=== PATIENT | female | born 1975 | race Caucasian/White ===

== ENCOUNTER 2016-11-02 06:45 | Day surgery (SDC) | payer OTHER ==
[~2016-11-02] VITALS: Ht 165.1 cm; Wt 94.1 kg
--- NOTE | ~2016-11-02 | OR ---
PATIENT'S NAME: MICAH JAMES [facility] AGE: 40 Y [address] ROOM: [place] [address] LOCATION: GOBS ADMIT DATE: 11/02/2016 OR/Procedure Report DISCHARGE DATE: FAMILY PHYSICIAN: Mitchel Moreira MD ATTENDING PHYSICIAN: DIVYA SOUZA SURGEON: Divya Souza MD RENT CONTROL OFFICE MANAGER: Logan Jain M.D. DATE OF PROCEDURE: 11/02/2016 PROCEDURE PERFORMED: Exam under anesthesia, lysis of adhesions, robotic assisted total hysterectomy and bilateral salpingectomy. ANESTHESIA: General. PREOPERATIVE DIAGNOSES: 1. Abnormal uterine bleeding, heavy menstrual bleeding, and leiomyoma. 2. Obesity. 3. Tobacco use. POSTOPERATIVE DIAGNOSES: 1. Abnormal uterine bleeding, heavy menstrual bleeding and leiomyoma. 2. Obesity. 3. Tobacco use. ANTIBIOTICS: 2 g Ancef. ESTIMATED BLOOD LOSS: 100 mL. FINDINGS: Enlarged uterus approximately 14 weeks in size. Extensive adhesions of the omentum and bladder to the anterior abdominal wall as well as between the bladder and the uterus. Normal-appearing tubes and ovaries bilaterally. Uterus with multiple fibroids, largest was an intramural leiomyoma approximately 6 cm in size. SPECIMENS: Uterus, cervix, and bilateral fallopian tubes. COMPLICATIONS: None. DISPOSITION: The patient is stable and sent to PACU. INDICATION FOR THE PROCEDURE: The patient is a 40-year-old female who was evaluated in the office for complaints of abnormal uterine bleeding with heavy menstrual bleeding that had been worsening over the last several years. The patient had an outside ultrasound done at the [facility] approximately a year and a half prior, which showed multiple fibroids. The patient had a PATIENT'S NAME: MICAH JAMES [facility] AGE: 40 Y [address] ROOM: [place] [address] LOCATION: GOBS ADMIT DATE: 11/02/2016 OR/Procedure Report DISCHARGE DATE: FAMILY PHYSICIAN: Mitchel Moreira MD ATTENDING PHYSICIAN: DIVYA SOUZA negative endometrial biopsy in the office and had previously had a normal TSH. She had a Pap smear done which was pending at the time of surgery. The patient was counseled about options for management. Due to her tobacco use, she was not a candidate for any estrogen containing contraceptives. The patient had previously had a tubal ligation and was done with childbearing. She desired to proceed with definitive management with hysterectomy. She was aware of the possibility of risk of infection, risk of bleeding, risk of injury to bowel and bladder, risks associated with anesthesia, and risk of thromboembolism. She was aware of risks and desired to proceed. DESCRIPTION OF PROCEDURE: The patient was seen in the preoperative area where consents were reviewed and signed. All questions were answered. She was then taken back to the operating room where a time-out was performed to confirm correct patient and correct procedure. She was placed under general anesthesia without difficulty. The patient was then positioned in dorsal lithotomy position in [facility]. As she was prepared adequately for the robot and Trendelenburg testing was positioned until the patient was found to be in adequate position. She was then prepped and draped in the usual sterile fashion. A weighted speculum was placed in the vagina and a [place] was used to retract anteriorly to visualize the cervix. Single-tooth tenaculum was applied to the anterior lip of the cervix and gentle traction applied. Cervix was progressively dilated to accommodate the MILENA manipulator. A single stitch of 0 Vicryl was placed in the anterior lip of the cervix and the MILENA manipulator was placed. Balloon had previously been tested. Uterine balloon was blown up and was felt to be in a proper position. All instruments were removed from the vagina and the surgeon's gloves were changed. The attention was then turned to the patient's abdomen. An incision was made approximately 20 cm superior to the pubic symphysis. A Veress needle was introduced through the incision and intraabdominal opening pressure was noted to be 8. Abdomen was allowed to insufflate to a pressure of 15. An 8 mm trocar was then advanced through this incision. Proper placement was confirmed with the laparoscoped. Under direct visualization, three additional 8 mm ports were placed for the robot as well as a 10 mm port in the right upper quadrant for the physician's assistant port. The patient was then placed in maximum Trendelenburg positioning and the robot was docked. Instruments were advanced into the abdomen under visualization. The patient was noted to have extensive adhesions of the omentum in bladder to the anterior abdominal wall. These were taken down bluntly and sharply. The uterus was then noted to be enlarged approximately 14 weeks in size with normal-appearing tubes and ovaries bilaterally. Extensive scar tissue was present between the bladder and the uterus. Starting on the patient's left side, the left fallopian tube was grasped, tented up, and transected from the underlying ovary. The left round ligament was then cauterized and ligated. This was repeated on the patient's right side. Successive bites were then taken down the left and right side down to the level of the uterine artery. The uterus was then retroverted and PATIENT'S NAME: MICAH JAMES [facility] AGE: 40 Y [address] ROOM: [address] [address] LOCATION: BS ADMIT DATE: 11/02/2016 OR/Procedure Report DISCHARGE DATE: FAMILY PHYSICIAN: Mitchel Moreira MD ATTENDING PHYSICIAN: DIVYA SOUZA work was performed on the bladder from the uterus. Once it was felt that there was safe bladder plane established, the uterine arteries were ligated on both sides. The uterus was then again retroverted and anterior colpotomy was made. This was carried circumferentially around on top of the MILENA manipulator. Uterus was then freed and removed through the vagina with the fallopian tubes. The pedicles were inspected and appeared hemostatic. The scissor instrument was then removed and a needle security patrol driver inserted. The needle was brought into the abdomen under direct visualization. The cuff was then closed in a running nonlocked fashion using 2-0 barbed suture. Again, incision appeared hemostatic. All instruments were removed from the patient's abdomen. The patient was placed in level positioning. The robot was undocked. The patient was placed in level positioning. All the physician's assistant port's fascia was closed with a single [id number] suture of 0 Vicryl. The skin incisions were then all closed using a running nonlocked suture of 4- 0 Vicryl. All incision sites appeared hemostatic and the patient was sent to the recovery room in stable condition. MD MIKE MCKEON/marck /[id number] d: t: 11/02/16 1659, OPERATIVE SUMMARY
[~2016-11-02 06:45] MED LIST: EFFEXOR XR150 MG PO; TYLENOL/COD#31 TAB PO
[2016-11-02 07:24] LABS: BASOPHIL % 0.4 %; EOSINOPHIL # 0.2 K/uL (0.0-0.5); EOSINOPHIL % 2.4 %; HEMATOCRIT 34.4 % (33.0-46.0); IMMATURE GRANULOCYTE % 0.3 %; LYMPHOCYTE # 2.7 K/uL (0.8-4.0); LYMPHOCYTE % 35.8 %; MCH 26.8 pg (27.0-34.0); MCV 83.9 fl (83.0-98.0); MONOCYTE # 0.7 K/uL (0.0-1.0); MONOCYTE % 9.8 %; MPV 9.5 fl (9.4-12.4); NEUTROPHIL # (ANC) 3.8 K/uL (1.8-7.8); NEUTROPHIL % 51.3 %; NRBC % 0 /100WBC (0-0.00); PLATELET COUNT 485 K/uL (150-450); RDW-CV 16.2 % (11.9-14.6); WBC 7.5 K/uL (4.0-11.0)
[2016-11-03 04:50] LABS: BASOPHIL % 0.1 %; EOSINOPHIL % 0.1 %; HEMATOCRIT 32.4 % (33.0-46.0); HEMOGLOBIN 10.4 g/dL (11.0-15.0); IMMATURE GRANULOCYTE # 0.1 K/uL (0.0-0.3); IMMATURE GRANULOCYTE % 0.3 %; LYMPHOCYTE # 2.7 K/uL (0.8-4.0); MCH 26.9 pg (27.0-34.0); MCHC 32.1 gm/dL (32.0-36.5); MCV 83.7 fl (83.0-98.0); MONOCYTE % 6.1 %; MPV 9.1 fl (9.4-12.4); NEUTROPHIL # (ANC) 13.3 K/uL (1.8-7.8); NEUTROPHIL % 77.4 %; NRBC % 0 /100WBC (0-0.00); PLATELET COUNT 437 K/uL (150-450); RBC 3.87 M/uL (3.50-5.50)
[2016-11-03 04:52] LABS: WBC 17.2 K/uL (4.0-11.0)
[2016-11-03] MEDS ORDERED: PERCOCET 5-3251 EACH PO (10:03)
[2016-11-03] MEDS ORDERED: MOTRIN800 MG PO (10:03)
[2016-11-03] MEDS ORDERED: COLACE100 MG PO (10:04)
== END 2016-11-03 10:50 | disposition disaster alternative care site (69) ==
LOC: GSDC 06:45 → GMSU 06:45 → GOBS 06:45 → GMSU 06:46 → GSDC 07:00 → GOBS 13:56 → GSDC 16:00
PROVIDERS: Obstetrics & Gynecology
PROC: 0UT94ZZ Resection of Uterus, Percutaneous Endoscopic Approach (ICD-10-PCS; principal; 2016-11-02)
PROC: 0UTC4ZZ Resection of Cervix, Percutaneous Endoscopic Approach (ICD-10-PCS; 2016-11-02)
PROC: 0UT74ZZ Resection of Bilateral Fallopian Tubes, Percutaneous Endoscopic Approach (ICD-10-PCS; 2016-11-02)
PROC: 8E0W4CZ Robotic Assisted Procedure of Trunk Region, Percutaneous Endoscopic Approach (ICD-10-PCS; 2016-11-02)
DX: D25.9 Leiomyoma of uterus, unspecified (principal); E66.9 Obesity, unspecified; G43.909 Migraine, unspecified, not intractable, without status migrainosus; N92.0 Excessive and frequent menstruation with regular cycle; F32.9 Major depressive disorder, single episode, unspecified; Z72.0 Tobacco use; Z90.89 Acquired absence of other organs; Z98.890 Other specified postprocedural states; Z98.51 Tubal ligation status; Z23 Encounter for immunization
CPT/HCPCS: G0008; J0690; J1100; J1885; J2001; J2405; J7030; J7120; J7121